=== PATIENT | male | born 1990 | race Caucasian/White ===

== ENCOUNTER 2023-09-20 08:13 | Emergency (ER) | payer MEDICAID ==
[~2023-09-20] VITALS: Ht 185.4 cm; Wt 82.6 kg
[2023-09-20 08:27] VITALS: TEMP 97.8
[2023-09-20] MEDS ORDERED: albuterol 2.5 MG/3 ML nebule NEB ONE (10:00)
[2023-09-20 10:11] LABS: BASOPHILS # (AUTO) 0.1 X10'3 (0-0.2); EOSINOPHILS # (AUTO) 0.5 X10'3 (0-0.9); HEMATOCRIT 44.7 % (42.0-52.0); LYMPHOCYTES # (AUTO) 2.6 X10'3 (1.1-4.8); MEAN CORPUSCULAR HGB CONC 33.6 g/dL (33.0-36.5); MEAN PLATELET VOLUME 6.9 FL (7.4-10.4); MONOCYTES # (AUTO) 0.7 X10'3 (0-0.9); WHITE BLOOD COUNT 5.6 X10'3 (4.5-11.0)
[2023-09-20 10:12] LABS: ALANINE AMINOTRANSFERASE 26 U/L (12-78); ALBUMIN 3.8 G/DL (3.4-5.0); ALBUMIN/GLOBULIN RATIO 1.1 (1.1-1.5); ALKALINE PHOSPHATASE 58 IU/L (46-116); ANION GAP 4 (8-16); ASPARTATE AMINO TRANSFERASE 13 U/L (10-37); BILIRUBIN,TOTAL 0.5 MG/DL (0.1-1.0); BLOOD UREA NITROGEN 11 MG/DL (7-18); BUN/CREATININE RATIO 10.3 (10.0-20.0); CALCIUM 8.8 MG/DL (8.5-10.1); CHLORIDE 103 MMOL/L (99-107); CREATININE 1.07 MG/DL (0.60-1.10); EOSINOPHILS % (AUTO) 8.2 % (0-6); GLUCOSE 94 MG/DL (70-104); MEAN CORPUSCULAR HEMOGLOBIN 31.9 PG (27.0-31.0); MEAN CORPUSCULAR VOLUME 94.9 FL (78-98); MONOCYTES % (AUTO) 12.5 % (2-12); NEUTROPHILS # (AUTO) 1.7 X10'3 (1.8-7.7); NEUTROPHILS % (AUTO) 31.3 % (42-75); PLATELET COUNT 311 X10'3 (140-440); POTASSIUM 4.1 MMOL/L (3.5-5.1); RED BLOOD COUNT 4.71 X10'6 (4.70-6.10); RED CELL DISTRIBUTION WIDTH 12.9 % (11.5-14.5); SODIUM 137 MMOL/L (135-145); TOTAL CARBON DIOXIDE 30.3 MMOL/L (24-32); TOTAL PROTEIN 7.4 G/DL (6.4-8.2); eCRCL 112 ML/MIN; eGFR 80 ML/MIN
[2023-09-20 10:19] VITALS: PULSE 54; RESP 20; O2SAT 6
[2023-09-20 10:31] VITALS: PULSE 59; RESP 18; O2SAT 99
[2023-09-20] MEDS ORDERED: ALBU18HF2 INH (10:36)
[2023-09-20] MEDS ORDERED: METH4TAB81 PO (10:36)
[2023-09-20 10:44] VITALS: BP 106/73; PULSE 68; RESP 18; O2SAT 100
== END 2023-09-20 10:48 | disposition home or self-care (01) ==
LOC: ER 08:13
DX: J45.901 Unspecified asthma with (acute) exacerbation (principal); Z79.899 Other long term (current) drug therapy
CPT/HCPCS: 36415; 71045; 80053; 85025; 94640; 94760; 99284

== ENCOUNTER 2023-10-22 19:37 | Emergency (ER) | payer MEDICAID ==
[~2023-10-22 19:37] MED LIST: ALBU18HF2 INH; METH4TAB81 PO
== END 2023-10-22 21:38 | disposition left against medical advice (07) ==
LOC: ER 19:38
DX: R06.02 Shortness of breath (principal); Z53.21 Procedure and treatment not carried out due to patient leaving prior to being seen by health care provider

== ENCOUNTER 2023-11-30 07:20 | Emergency (ER) | payer MEDICAID ==
[~2023-11-30] VITALS: Ht 185.4 cm; Wt 82.3 kg
[2023-11-30] MEDS: dexamethasone sod phosphate 10mg/ml inj PO STA (07:37)
[2023-11-30 07:43] VITALS: PULSE 104; RESP 20; O2SAT 96
[2023-11-30] MEDS: ipratropium/albuterol 3ml nebule NEB ONE (07:43)
[2023-11-30 07:49] VITALS: PULSE 78; RESP 18; O2SAT 96
[2023-11-30] MEDS ORDERED: ALBU2.5V13 INH ×2 (07:52)
[2023-11-30] MEDS ORDERED: ALBU18HF2 INH (07:52)
[2023-11-30] MEDS ORDERED: ADV50100 INH (07:52)
[2023-11-30] MEDS ORDERED: PRED20TA PO (07:52)
[2023-11-30 08:45] VITALS: BP 124/76; PULSE 78; RESP 18; TEMP 97.7; O2SAT 96
== END 2023-11-30 08:46 | disposition home or self-care (01) ==
LOC: ER 07:21
DX: J45.901 Unspecified asthma with (acute) exacerbation (principal); F17.210 Nicotine dependence, cigarettes, uncomplicated; F12.90 Cannabis use, unspecified, uncomplicated; Z79.899 Other long term (current) drug therapy
CPT/HCPCS: 94640; 99283; J1100; 94760

== ENCOUNTER 2024-01-02 11:14 | Emergency (ER) | payer MEDICAID ==
[~2024-01-02] VITALS: Ht 172.7 cm; Wt 79.5 kg
[~2024-01-02 11:14] MED LIST changes: +ADV50100 INH; +ALBU2.5V13 INH
[2024-01-02 11:32] VITALS: BP 151/132; PULSE 81; RESP 18; TEMP 97.8; O2SAT 98
[2024-01-02] MEDS ORDERED: ADV50100 INH (15:52)
[2024-01-02] MEDS ORDERED: ALBU18HF2 INH (15:52)
[2024-01-02] MEDS ORDERED: ALBU2.5V13 INH (15:52)
== END 2024-01-02 16:16 | disposition home or self-care (01) ==
LOC: ER 11:14
DX: J45.909 Unspecified asthma, uncomplicated (principal); F12.90 Cannabis use, unspecified, uncomplicated; Z79.899 Other long term (current) drug therapy
CPT/HCPCS: 99281

== ENCOUNTER 2024-03-14 18:05 | Emergency (ER) | payer MEDICAID ==
[~2024-03-14] VITALS: Ht 185.4 cm; Wt 77.3 kg
[2024-03-14 18:26] LABS: BASOPHILS % (AUTO) 0.5 % (0-1); EOSINOPHILS # (AUTO) 0.5 X10'3 (0-0.9); EOSINOPHILS % (AUTO) 9.7 % (0-6); HEMATOCRIT 42.3 % (42.0-52.0); LYMPHOCYTES # (AUTO) 2.3 X10'3 (1.1-4.8); LYMPHOCYTES % (AUTO) 42.4 % (21-51); MEAN CORPUSCULAR HEMOGLOBIN 30.9 PG (27.0-31.0); MEAN CORPUSCULAR HGB CONC 33.1 g/dL (33.0-36.5); MEAN CORPUSCULAR VOLUME 93.2 FL (78-98); MEAN PLATELET VOLUME 7.1 FL (7.4-10.4); MONOCYTES # (AUTO) 0.6 X10'3 (0-0.9); MONOCYTES % (AUTO) 11.1 % (2-12); NEUTROPHILS % (AUTO) 36.3 % (42-75); PLATELET COUNT 292 X10'3 (140-440); RED BLOOD COUNT 4.54 X10'6 (4.70-6.10); RED CELL DISTRIBUTION WIDTH 12.7 % (11.5-14.5); WHITE BLOOD COUNT 5.4 X10'3 (4.5-11.0)
[2024-03-14 18:36] LABS: ALBUMIN 3.7 G/DL (3.4-5.0); ANION GAP 9 (8-16); BLOOD UREA NITROGEN 10 MG/DL (7-18); BUN/CREATININE RATIO 8.3 (10.0-20.0); CALCIUM 8.3 MG/DL (8.5-10.1); CHLORIDE 107 MMOL/L (99-107); GLUCOSE 97 MG/DL (70-104); POTASSIUM 3.6 MMOL/L (3.5-5.1); SODIUM 140 MMOL/L (135-145); TOTAL CARBON DIOXIDE 23.7 MMOL/L (24-32); eCRCL 96 ML/MIN; eGFR 70 ML/MIN
[2024-03-14] MEDS: ipratropium/albuterol 3ml nebule NEB ONE (18:37)
[2024-03-14 18:40] VITALS: PULSE 65; RESP 18; O2SAT 95
[2024-03-14 18:48] VITALS: PULSE 67; RESP 14; O2SAT 98
[2024-03-14] MEDS ORDERED: METH4TAB81 PO (19:35)
[2024-03-14] MEDS ORDERED: ADV50100 INH (19:35)
[2024-03-14] MEDS ORDERED: ALBU2.5V13 INH (19:35)
[2024-03-14] MEDS ORDERED: ALBU18HF2 INH (19:35)
[2024-03-14] MEDS: methylPREDNISolone sod succ 125mg/2ml vial IV ONE (20:25)
[2024-03-14] MEDS: ringers solution, lacted 1,000 ML IV ONE (20:41)
[2024-03-14] MEDS: magnesium 2GM in 50ml NS 50 ML IV ONE (20:41)
[2024-03-14 20:51] VITALS: BP 108/75; PULSE 65; RESP 16; TEMP 98.3; O2SAT 97
== END 2024-03-14 21:53 | disposition home or self-care (01) ==
LOC: ER 18:06
DX: J45.901 Unspecified asthma with (acute) exacerbation (principal); J45.909 Unspecified asthma, uncomplicated; F12.90 Cannabis use, unspecified, uncomplicated; Z79.899 Other long term (current) drug therapy
CPT/HCPCS: 36415; 71045; 80048; 85025; 93005; 94640; 96365; 96375; 99285; J2919; J3475; J7120; 94760

== ENCOUNTER 2024-04-28 13:26 | Emergency (ER) | payer MEDICAID ==
[~2024-04-28] VITALS: Ht 185.4 cm; Wt 76.2 kg
[2024-04-28 14:33] LABS: APTT 25 SECONDS (22-32); INR 1.1 INR; PROTHROMBIN TIME 11.1 SECONDS (9.0-12.0)
[2024-04-28 14:34] LABS: ALANINE AMINOTRANSFERASE 27 U/L (12-78); ALBUMIN/GLOBULIN RATIO 1.2 (1.1-1.5); ALKALINE PHOSPHATASE 60 IU/L (46-116); ANION GAP 8 (8-16); ASPARTATE AMINO TRANSFERASE 11 U/L (10-37); BILIRUBIN,TOTAL 0.6 MG/DL (0.1-1.0); BLOOD UREA NITROGEN 12 MG/DL (7-18); BUN/CREATININE RATIO 9.2 (10.0-20.0); CHLORIDE 106 MMOL/L (99-107); GLUCOSE 112 MG/DL (70-104); LIPASE 36 U/L (16-77); POTASSIUM 3.6 MMOL/L (3.5-5.1); SODIUM 142 MMOL/L (135-145); TOTAL CARBON DIOXIDE 27.7 MMOL/L (24-32); TOTAL PROTEIN 7.4 G/DL (6.4-8.2); eCRCL 87 ML/MIN; eGFR 64 ML/MIN
[2024-04-28] MEDS: dicyclomine 10 MG capsule PO ONE (14:43)
[2024-04-28] MEDS: ondansetron 4mg rapidly disintigrating tab PO ONE (14:43)
[2024-04-28 14:44] LABS: BASOPHILS # (AUTO) 0.1 X10'3 (0-0.2); BASOPHILS % (AUTO) 1.9 % (0-1); EOSINOPHILS # (AUTO) 0.2 X10'3 (0-0.9); EOSINOPHILS % (AUTO) 3.7 % (0-6); HEMATOCRIT 43.4 % (42.0-52.0); HEMOGLOBIN 14.5 g/dl (14.0-17.9); LYMPHOCYTES # (AUTO) 1.4 X10'3 (1.1-4.8); LYMPHOCYTES % (AUTO) 33.8 % (21-51); MEAN CORPUSCULAR HEMOGLOBIN 30.5 PG (27.0-31.0); MEAN CORPUSCULAR HGB CONC 33.3 g/dL (33.0-36.5); MEAN CORPUSCULAR VOLUME 91.5 FL (78-98); MEAN PLATELET VOLUME 7.5 FL (7.4-10.4); MONOCYTES # (AUTO) 0.4 X10'3 (0-0.9); MONOCYTES % (AUTO) 10.5 % (2-12); NEUTROPHILS # (AUTO) 2.1 X10'3 (1.8-7.7); NEUTROPHILS % (AUTO) 50.1 % (42-75); PLATELET COUNT 271 X10'3 (140-440); RED BLOOD COUNT 4.74 X10'6 (4.70-6.10); RED CELL DISTRIBUTION WIDTH 12.5 % (11.5-14.5); WHITE BLOOD COUNT 4.3 X10'3 (4.5-11.0)
[2024-04-28] MEDS: ketorolac trometh. 30mg/ml inj. IV ONE (15:59)
[2024-04-28] MEDS: normal saline 1000ML IV soln IVB ONE (15:59)
[2024-04-28] MEDS ORDERED: ALBU18HF2 INH (16:53)
[2024-04-28] MEDS ORDERED: ADV50100 INH (16:53)
[2024-04-28 17:28] VITALS: BP 128/62; PULSE 88; RESP 16; TEMP 97.8; O2SAT 100
== END 2024-04-28 17:41 | disposition home or self-care (01) ==
LOC: ER 13:27
DX: R10.84 Generalized abdominal pain (principal); E86.0 Dehydration; R19.7 Diarrhea, unspecified; R11.2 Nausea with vomiting, unspecified; J45.909 Unspecified asthma, uncomplicated; F17.210 Nicotine dependence, cigarettes, uncomplicated; F12.90 Cannabis use, unspecified, uncomplicated; Z79.899 Other long term (current) drug therapy; Z79.51 Long term (current) use of inhaled steroids
CPT/HCPCS: 36415; 71045; 74176; 80053; 83690; 85025; 85610; 85730; 96361; 96374; 99285; J1885; J7030

== ENCOUNTER 2024-06-04 21:03 | Emergency (ER) | payer MEDICAID ==
[~2024-06-04] VITALS: Ht 185.4 cm; Wt 77.3 kg
[2024-06-04] MEDS ORDERED: ADV50100 INH (22:39)
[2024-06-04] MEDS ORDERED: ALBU8HFA INH (22:39)
[2024-06-04] MEDS ORDERED: ALB0.5UD NEB (22:39)
[2024-06-04 22:59] VITALS: BP 132/78; PULSE 77; RESP 18; TEMP 97.9; O2SAT 98
== END 2024-06-04 23:03 | disposition home or self-care (01) ==
LOC: ER 21:04
DX: J45.909 Unspecified asthma, uncomplicated (principal); F12.90 Cannabis use, unspecified, uncomplicated; Z79.899 Other long term (current) drug therapy
CPT/HCPCS: 99281

== ENCOUNTER 2024-06-20 23:19 | Emergency (ER) | payer MEDICAID ==
[~2024-06-20] VITALS: Ht 185.4 cm; Wt 79.5 kg
[~2024-06-20 23:19] MED LIST changes: +ALBU8HFA INH
[2024-06-20 23:28] VITALS: BP 119/77; PULSE 84; RESP 16; TEMP 98.6; O2SAT 97
[2024-06-21] MEDS: LIDOcaine 1% W/epiNEPHrine 1:100,000 20ml vial IJ ONE (00:15)
[2024-06-21] MEDS: ondansetron 4mg rapidly disintigrating tab PO ONE (00:59)
== END 2024-06-21 02:08 | disposition home or self-care (01) ==
LOC: ER 23:19
DX: S91.311A Laceration without foreign body, right foot, initial encounter (principal); J45.909 Unspecified asthma, uncomplicated; F12.90 Cannabis use, unspecified, uncomplicated; Z79.899 Other long term (current) drug therapy; Z79.52 Long term (current) use of systemic steroids; Z79.51 Long term (current) use of inhaled steroids; X58.XXXA Exposure to other specified factors, initial encounter; Y93.89 Activity, other specified; Y92.89 Other specified places as the place of occurrence of the external cause; Y99.8 Other external cause status
CPT/HCPCS: 12001; 99283; A6258; A6449

== ENCOUNTER 2024-08-26 00:32 | Emergency (ER) | payer MEDICAID ==
[~2024-08-26] VITALS: Ht 185.4 cm; Wt 81.8 kg
[~2024-08-26 00:32] MED LIST changes: -ALBU8HFA INH
[2024-08-26 00:33] VITALS: TEMP 98
[2024-08-26 00:50] VITALS: PULSE 90; RESP 18; O2SAT 94
[2024-08-26] MEDS: ipratropium/albuterol 3ml nebule NEB ONE (00:50)
[2024-08-26] MEDS ORDERED: ADV50100 INH (00:52)
[2024-08-26] MEDS ORDERED: ALBU18HF2 INH (00:52)
[2024-08-26] MEDS ORDERED: PRED20TA PO (00:52)
[2024-08-26] MEDS: albuterol 2.5 MG/3 ML nebule CONTNEB STA (01:04)
[2024-08-26 01:08] VITALS: PULSE 85; RESP 18; O2SAT 91
[2024-08-26] MEDS: predniSONE 20 mg tablet PO ONE (01:43)
[2024-08-26] MEDS: albuterol 2.5 MG/3 ML nebule ONE (02:01)
[2024-08-26 02:02] VITALS: PULSE 89; RESP 22; O2SAT 90
[2024-08-26 03:04] VITALS: PULSE 94; RESP 18; O2SAT 94
[2024-08-26 03:21] VITALS: BP 117/86; PULSE 92; O2SAT 94
== END 2024-08-26 03:23 | disposition home or self-care (01) ==
LOC: ER 00:33
DX: J45.901 Unspecified asthma with (acute) exacerbation (principal); F12.90 Cannabis use, unspecified, uncomplicated; Z79.52 Long term (current) use of systemic steroids
CPT/HCPCS: 94644; 99285; J7512; 94640; 94760

== ENCOUNTER 2025-09-13 03:50 | Emergency (ER) | payer MEDICAID ==
[~2025-09-13] VITALS: Ht 185.4 cm; Wt 87.3 kg
[2025-09-13 05:51] VITALS: PULSE 61; RESP 20; O2SAT 94
[2025-09-13] MEDS: albuterol 2.5 MG/3 ML nebule NEB ONE (05:51)
[2025-09-13 05:59] VITALS: PULSE 78; RESP 18; O2SAT 98
[2025-09-13 06:07] VITALS: TEMP 98.7
--- NOTE | 2025-09-13 06:40 | Physician Documentation ---
HPI ~ General Chief Complaint: Medication Request Stated Complaint: BREATHING TREATMENT Time Seen by MD: 06:31 OK to notify your PCP?: Yes Primary Medical Doctor: [facility] History of Present Illness HPI Comments Diagnosed with bronchitis and prescribed albuterol but hasn't filled prescription. Denies fevers, chest pain, shortness of breath. Medication Reconciliation Allergies: Coded Allergies: No Known Allergies (Unverified , 06/20/24) Scheduled Albuterol Sulfate (Ventolin Hfa), 2 PUFFS INH Q4HPRN Fluticasone/Salmeterol (Advair 100-50 Diskus), 1 PUFFS INH Q12H Fluticasone/Salmeterol* (Advair 100-50 Diskus*), 2 PUFF INH DAILY Methylprednisolone (Medrol Dosepak), 0 PO UD Scheduled PRN Albuterol Sulfate (Albuterol Sulfate), 1 VIAL INH Q4H PRN for SOB or wheezing Albuterol Sulfate (Ventolin Hfa), 2 PUFFS INH Q4HPRN PRN for wheezing Past Medical History Past Medical History: Asthma Past Surgical History: noncontributory Drug Use: marijuana Lives In: Home Review of Systems All Other Systems at this time: Reviewed and Negative Physical Exam Physical Exam Vital Signs: RN Vital Signs have been reviewed: Yes, Temperature: 98.7, Source: Oral, Heart Rate: 65, Respiratory Rate: 16, BP: 118/86, Pulse Oximetry: 94, Weight: 87.270 Oxygen Flow Rate: 0 Physical Exam General: no distress HEENT: PERRL EOMI Pulm: no distress Cardiac:deferred Abdomen:deferred MSK: no deformity Neuro: nonfocal Skin: w/d/i Psych: unremarkable Progress Results/Orders Results/Orders Medications Received in ER Medications (Trade) Dose Ordered Sig/Naren Route PRN Reason Start Time Stop Time Status Last Admin Dose Admin (Proventil 2.5 MG/3ML nebule) 2.5 mg ONCE ONCE NEB 09/13/25 05:10 09/13/25 05:16 DC 09/13/25 05:51 2.5 MG Vital Signs 09/13/25 09/13/25 09/13/25 09/13/25 03:55 05:13 05:15 05:51 Temp 98.7 98.7 Pulse 81 66 61 Resp 20 16 16 20 B/P (MAP) 112/63 99/78 (85) Pulse Ox 95 96 94 O2 Delivery Room Air* O2 Flow Rate 0 0 FiO2 N/A 09/13/25 09/13/25 05:59 06:07 Temp 98.7 Pulse 78 65 Resp 18 16 B/P (MAP) 118/86 (97) Pulse Ox 98 94 O2 Delivery Room Air* O2 Flow Rate 0 0 FiO2 N/A N/A Medical Decision Making Additional information obtaine: N/A Findings 34 year old male with apparent URI. Provided breathing treatment, improved, return precautions. Differential Dx:Considerations: Include: Adverse circumstances, Economic, Psychosocial, Medication refill, Medication non-compliance Departure Disposition: 01 HOME / SELF CARE / HOMELESS Impression: Primary Impression: Upper respiratory infection Condition: Stable Discharge Instructions: Medicine Refill at the Emergency Department Referrals: NO PRIMARY CARE PROVIDER (PCP) Education Educated: Patient Educated regarding: diagnosis, treatment, prognosis, need for follow up Signature Scribe Signature: . Attestation: . ALEXA PITTMAN MD Sep 13, 2025 06:40
[2025-09-13 06:53] VITALS: BP 127/91; PULSE 69; RESP 18; O2SAT 97
== END 2025-09-13 06:57 | disposition home or self-care (01) ==
LOC: ER 03:51
DX: J06.9 Acute upper respiratory infection, unspecified (principal); F12.90 Cannabis use, unspecified, uncomplicated; Z79.899 Other long term (current) drug therapy
CPT/HCPCS: 94640; 99283